=== PATIENT | female | born 1965 | race African-American/Black ===

== ENCOUNTER 2018-07-26 00:20 | Inpatient (IN) | payer BC, MEDICAID, OTHER ==
[~2018-07-26] VITALS: Ht 170.2 cm; Wt 198.7 kg
[~2018-07-26 00:20] MED LIST: AMLO2.5T45 PO; METO25TA6 PO
[2018-07-26] MEDS ORDERED: ONDANSETRON HCL 4MG/2ML INJ IV STA (01:41)
[2018-07-26] MEDS ORDERED: ASPIRIN 81MG TABLET PO ONE (01:45)
[2018-07-26] MEDS ORDERED: DILTIAZEM HCL 5MG/ML 5ML VIAL IV ONE ×2 (01:45→03:15)
[2018-07-26 01:59] LABS: BASOPHILS % 1.1 % (0.0-2.0); HEMATOCRIT. 36.8 % (36.0-48.0); HEMOGLOBIN. 11.5 g/dL (12.0-16.0); LYMPHOCYTES % 25.5 % (20.0-50.0); MEAN CORPUSCULAR HEMOGLOBIN 23.9 pg (28.0-32.0); MEAN CORPUSCULAR VOLUME 76.5 fL (81.0-99.0); MEAN PLATELET VOLUME 8.5 fl (7.4-10.4); MONOCYTES % 7.5 % (2.0-8.0); NEUTROPHILS % 61.9 % (40.0-76.0); PLATELET 337 x1000/uL (130-400); RED BLOOD CELL COUNT 4.81 mill/uL (4.2-5.4); RED CELL DISTRIBUTION WIDTH 22.7 % (11.6-14.6)
[2018-07-26 02:02] LABS: CHLORIDE 104 mEq/L (98-107); INR 1.1; PROTHROMBIN TIME 11.4 sec (9.1-11.1)
[2018-07-26 02:10] LABS: PLATELET ESTIMATE NORMAL
[2018-07-26] MEDS ORDERED: DILTIAZEM HCL 5MG/ML 5ML VIAL IV SCH (08:45)
[2018-07-26] MEDS ORDERED: ACETAMINOPHEN 325MG TABLET PO PRN (11:45)
[2018-07-26] MEDS ORDERED: HYDROMORPHONE HCL/PF 2MG/ML CPJ IV PRN (11:45)
[2018-07-26] MEDS ORDERED: GUAIFENESIN 200MG/10ML SUGAR FREE UDC PO PRN (11:45)
[2018-07-26] MEDS ORDERED: DOCUSATE SODIUM 100MG CAPSULE PO PRN (11:45)
[2018-07-26] MEDS ORDERED: ENOXAPARIN 40MG/0.4ML SYR SUBCUT SCH (11:45)
[2018-07-26] MEDS ORDERED: HYDROCODONE/ACETAMINOPHEN 5/325MG TABLET PO PRN (11:45)
[2018-07-26] MEDS ORDERED: CLONIDINE 0.1MG TABLET PO PRN (11:45)
[2018-07-26] MEDS ORDERED: ONDANSETRON HCL 4MG/2ML INJ IV PRN (11:45)
[2018-07-26] MEDS: ENOXAPARIN 40MG/0.4ML SYR SUBCUT SCH ×2 (12:00→23:29)
[2018-07-26] MEDS: METOPROLOL TARTRATE 25MG TABLET PO SCH ×2 (12:00→22:00)
[2018-07-26 15:41] LABS: CREATINE KINASE 216 IU/L (26-192)
[2018-07-26 15:43] LABS: CREATINE KINASE MB FRACTION 2.8 ng/mL (0.5-3.6)
[2018-07-26] MEDS: IPRATROPIUM/ALBUTEROL 0.5-3(2.5)MG/3ML NEB INH PRN (15:48)
[2018-07-27 00:29] LABS: CREATINE KINASE 189 IU/L (26-192)
[2018-07-27 00:30] LABS: CREATINE KINASE MB FRACTION 2.4 ng/mL (0.5-3.6)
[2018-07-27 05:57] LABS: CHLORIDE 102 mEq/L (98-107)
[2018-07-27 05:58] LABS: BASOPHILS % 1.1 % (0.0-2.0); EOSINOPHILS % 3.3 % (0.0-5.0); HEMATOCRIT. 34.4 % (36.0-48.0); HEMOGLOBIN. 10.5 g/dL (12.0-16.0); LYMPHOCYTES % 20.1 % (20.0-50.0); MEAN CORPUSCULAR HEMOGLOBIN 23.9 pg (28.0-32.0); MEAN CORPUSCULAR VOLUME 77.8 fL (81.0-99.0); MEAN PLATELET VOLUME 8.3 fl (7.4-10.4); MONOCYTES % 9.6 % (2.0-8.0); NEUTROPHILS % 65.9 % (40.0-76.0); PLATELET 312 x1000/uL (130-400); RED BLOOD CELL COUNT 4.42 mill/uL (4.2-5.4); RED CELL DISTRIBUTION WIDTH 22.6 % (11.6-14.6)
[2018-07-27 06:07] LABS: LDL CHOLESTEROL 81 mg/dL (5-100)
[2018-07-27 06:08] LABS: HDL CHOLESTEROL 33 mg/dL (40-59); T4 FREE 1.01 ng/dL (0.76-1.46)
[2018-07-27] MEDS: DILTIAZEM HCL 30MG TABLET PO PRN (07:47)
[2018-07-27] MEDS: IPRATROPIUM/ALBUTEROL 0.5-3(2.5)MG/3ML NEB INH PRN (08:22)
[2018-07-27] MEDS: METOPROLOL TARTRATE 25MG TABLET PO SCH ×2 (11:37→22:50)
[2018-07-27 20:33] VITALS: BP 124/76
[2018-07-27 20:37] VITALS: BP 124/76
[2018-07-27] MEDS: ENOXAPARIN 40MG/0.4ML SYR SUBCUT SCH (21:00)
[2018-07-28 00:03] VITALS: BP 109/48
[2018-07-28 04:00] VITALS: BP 131/80
[2018-07-28 08:00] VITALS: BP_SYST 117; BP_SYST 120; BP_DIAS 73; BP_DIAS 76
[2018-07-28] MEDS: METOPROLOL TARTRATE 25MG TABLET PO SCH (08:48)
[2018-07-28 12:00] VITALS: BP 110/76
[2018-07-28] MEDS: DILTIAZEM HCL 30MG TABLET PO PRN (12:48)
[2018-07-28] MEDS: ENOXAPARIN 40MG/0.4ML SYR SUBCUT SCH (12:50)
[2018-07-28 14:21] VITALS: BP_SYST 110; BP_SYST 122; BP_DIAS 76
== END 2018-07-28 16:28 | disposition home or self-care (01) | DRG 201 ==
LOC: ER 00:20 → EDBEDREQTM 03:14 → EDBEDREQ 03:14 → CANRESERV 20:39 → ENRESERV 20:39 → 6WST 07-27 03:13 → ENRESERV 07-27 17:41
PROVIDERS: ADMIT Ophthalmology; ATTEND Ophthalmology
DX: I48.91 Unspecified atrial fibrillation (principal); E66.01 Morbid (severe) obesity due to excess calories; R07.89 Other chest pain; Z68.44 Body mass index [BMI] 60.0-69.9, adult
CPT/HCPCS: 36415; 71045; 80061; 82550; 82553; 83605; 83880; 84439; 84443; 84484; 93005; 93306; 93970; 94640; 96374; 96375; 99291; J1650; J2405; J3490; J7620

== ENCOUNTER 2020-08-28 01:01 | Emergency (ER) | payer MEDICAID ==
[~2020-08-28] VITALS: Ht 177.8 cm; Wt 158.0 kg
[~2020-08-28 01:01] MED LIST changes: -AMLO2.5T45 PO; +ASPI-1406 PO; +DILT120T13 PO; +FERR325T6 PO; +FURO20TA4 PO; +IPRA3AMP9 HHN; -METO25TA6 PO
[2020-08-28] MEDS ORDERED: DILTIAZEM HCL 5MG/ML 5ML VIAL IV ONE ×2 (01:45→04:15)
[2020-08-28] MEDS: FUROSEMIDE 40MG/4ML VIAL IV ONE ×3 (01:47→03:11)
[2020-08-28 01:54] LABS: BASOPHILS % 0.7 % (0.0-2.0); EOSINOPHILS % 0.8 % (0.0-5.0); HEMATOCRIT. 45.1 % (36.0-48.0); HEMOGLOBIN. 13.9 g/dL (12.0-16.0); LYMPHOCYTES % 15.5 % (20.0-50.0); MEAN CORPUSCULAR HEMOGLOBIN 25.3 pg (28.0-32.0); MEAN PLATELET VOLUME 8.1 fl (7.4-10.4); MONOCYTES % 9.3 % (2.0-8.0); NEUTROPHILS % 73.7 % (40.0-76.0); PLATELET 292 x1000/uL (130-400)
[2020-08-28 02:03] LABS: CHLORIDE 96 mEq/L (98-107)
[2020-08-28 02:05] LABS: INR 1.2; PARTIAL THROMBOPLASTIN TIME 26.5 sec (23.4-31.0); PROTHROMBIN TIME 12.4 sec (9.6-11.0)
[2020-08-28 02:07] LABS: ETHANOL BLOOD < 10 mg/dL
[2020-08-28 02:35] LABS: CLARITY URINE CLOUDY (CLEAR); COLOR URINE DARK YELLOW (YELLOW); KETONES URINE TRACE (NEGATIVE); LEUKOCYTE ESTERASE URINE TRACE (NEGATIVE); NITRITE URINE NEGATIVE (NEGATIVE); OCCULT BLOOD URINE NEGATIVE (NEGATIVE); PROTEIN URINE 1+ (NEGATIVE); SPECIFIC GRAVITY URINE 1.031 (1.005-1.030)
[2020-08-28 02:46] LABS: *AMPHETAMINES SCREEN URINE NEGATIVE (NEGATIVE); *BARBITURATES SCREEN URINE NEGATIVE (NEGATIVE); *BENZODIAZEPINES SCREEN URINE NEGATIVE (NEGATIVE); PHENCYCLIDINE URINE SCREEN NEGATIVE (NEGATIVE)
[2020-08-28 02:47] LABS: *COCAINE SCREEN URINE NEGATIVE (NEGATIVE); CANNABINOID URINE SCREEN NEGATIVE (NEGATIVE); METHADONE URINE SCREEN NEGATIVE (NEGATIVE); OPIATES URINE SCREEN NEGATIVE (NEGATIVE)
[2020-08-28 09:16] VITALS: BP 119/74
== END 2020-08-28 09:19 | disposition short-term general hospital (02) ==
LOC: ER 01:01
DX: I48.91 Unspecified atrial fibrillation (principal); I50.9 Heart failure, unspecified; R09.02 Hypoxemia; M19.90 Unspecified osteoarthritis, unspecified site; Z88.8 Allergy status to other drugs, medicaments and biological substances; Z79.82 Long term (current) use of aspirin; Z91.14 Patient's other noncompliance with medication regimen; Z20.822 Contact with and (suspected) exposure to COVID-19
CPT/HCPCS: 36415; 71045; 80053; 80305; 80320; 81003; 83605; 83690; 83880; 84145; 84484; 85025; 85610; 85730; 87040; 93005; 96374; 96375; 96376; 99285; C9803; J1940; J3490; U0003; G0480